=== PATIENT | male | born 1990 | race American Indian/Alaskan Native ===

== ENCOUNTER 2019-06-04 09:48 | Emergency (ER) | payer SELFPAY ==
[2019-06-04 10:33] VITALS: BP 149/81
[2019-06-04] MEDS ORDERED: AZITHROMYCIN 1 GM ORAL PWDR PACKET PO ONE (13:10)
[2019-06-04] MEDS ORDERED: levoFLOXacin 750 MG TAB PO ONE (13:10)
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
== END 2019-06-04 13:27 | disposition home or self-care (01) ==
LOC: ED 09:48
DX: Z20.2 Contact with and (suspected) exposure to infections with a predominantly sexual mode of transmission (principal); Z98.890 Other specified postprocedural states